=== PATIENT | female | born 1995 | race African-American/Black ===

== ENCOUNTER 2018-10-19 13:28 | Emergency (ER) | payer SELFPAY ==
[~2018-10-19] VITALS: Ht 165.1 cm; Wt 167.3 kg
[2018-10-19 14:06] VITALS: Ht 165.1 cm; Wt 167.3 kg
[2018-10-19 16:12] LABS: APPEARANCE CLEAR (CLEAR); BILIRUBIN NEGATIVE (NEGATIVE); COLOR YELLOW (YELLOW); GLUCOSE NEGATIVE (NEGATIVE); KETONE NEGATIVE (NEGATIVE); NITRITE NEGATIVE (NEGATIVE); PROTEIN NEGATIVE (NEGATIVE); UROBILINOGEN NORMAL (NORMAL)
[2018-10-19] MEDS ORDERED: VOLTAREN75 MG PO (17:20)
[2018-10-19 17:55] VITALS: BP 142/90
== END 2018-10-19 17:50 | disposition home or self-care (01) ==
LOC: D.ER 13:28
PROVIDERS: Emergency Medicine
DX: M79.18 Myalgia, other site (principal)

== ENCOUNTER 2019-04-03 19:50 | Emergency (ER) | payer SELFPAY ==
[~2019-04-03] VITALS: Ht 165.1 cm; Wt 170.5 kg
[~2019-04-03 19:50] MED LIST: VOLTAREN75 MG PO
[2019-04-03 20:01] VITALS: Ht 165.1 cm; Wt 170.5 kg
[2019-04-03 20:23] LABS: BASOPHILS 0.3 % (0-2); EOSINOPHILS 1.3 % (0-7); HEMATOCRIT 40.5 % (36.0-48.0); HEMOGLOBIN 12.8 g/dL (12-16); IMMATURE GRANULOCYTES 0.6 % (0-5); LYMPHOCYTES 37.3 % (15-50); MCH 28.7 pg (26.0-34.0); MCHC 31.6 g/dL (31.0-37.0); MCV 90.8 fL (80.0-100.0); MEAN PLATELET VOLUME 9.5 fL (7.4-10.4); MONOCYTES 7.1 % (2-11); NEUTROPHILS 53.4 % (40-80); PLATELET COUNT 294 10x3/uL (130-400); RBC 4.46 10x6/uL (4.00-5.40); RDW 13.6 % (11.5-14.5); WBC 10.6 10x3/uL (4.8-10.8)
[2019-04-03 20:30] LABS: APPEARANCE CLEAR (CLEAR); BILIRUBIN NEGATIVE (NEGATIVE); COLOR STRAW (YELLOW); GLUCOSE NEGATIVE (NEGATIVE); KETONE NEGATIVE (NEGATIVE); NITRITE NEGATIVE (NEGATIVE); PROTEIN NEGATIVE (NEGATIVE); SPECIFIC GRAVITY 1.005 (1.005-1.020); UROBILINOGEN NORMAL (NORMAL)
[2019-04-03 20:32] LABS: HCG URINE NEGATIVE (NEGATIVE)
--- NOTE | 2019-04-03 20:35 | NUR ---
DR. NG NOTIFIED AND REVIEWED PT'S BEHAVIOR AND ASSESSMENT RESULTS. PT IS A LOW RISK PER DR. NG. DR. NG STATED TO GIVE RESOURCES TO PT AT TIME OF DISCHARGE. NO FURTHER ORDERS AT THIS TIME. RESOURCES REVIEWED WITH PT AND SHE VERBALIZED UNDERSTANDING.
[2019-04-03 20:41] LABS: APTT 32.4 SECONDS (22.8-39.4); INR 0.96 (0.85-1.17); PROTIME 12.3 SECONDS (11.6-15.0)
[2019-04-03 20:47] LABS: CALC OSMOLALITY 280 mosm/kg (275-300); CARBON DIOXIDE 27.1 mmol/L (21.0-32.0); CHLORIDE - SERUM 105 mmol/L (98-107); CREATININE - SERUM 0.8 mg/dL (0.6-1.3); GLUCOSE 120 mg/dL (74-106); SODIUM 141 mmol/L (136-145); UREA NITROGEN 9 mg/dL (7-18); eGFR NON AFRICAN AMERICAN > 90 mL/min (90-120)
[2019-04-03 20:54] LABS: ALBUMIN 3.7 g/dL (3.4-5.0); ALKALINE PHOSPHATASE 161 U/L (46-116); ALT (SGPT) 28 U/L (10-68); CREATINE KINASE 117 UL (21-215); MAGNESIUM - SERUM 2.1 mg/dL (1.8-2.4); PROTEIN - SERUM 8.1 g/dL (6.4-8.2)
[2019-04-03 20:55] LABS: TROPONIN-I < 0.017 ng/mL (0.000-0.060)
[2019-04-03] MEDS ORDERED: ALBUTEROL SULF8.5 GM INH (21:45)
[2019-04-03] MEDS ORDERED: VIBRAMYCIN 100100 MG PO (21:45)
[2019-04-03 21:53] VITALS: BP 153/83
== END 2019-04-03 21:53 | disposition home or self-care (01) ==
LOC: D.ER 19:50
PROVIDERS: Emergency Medicine
DX: J40 Bronchitis, not specified as acute or chronic (principal)

== ENCOUNTER 2019-04-14 15:07 | Emergency (ER) | payer SELFPAY ==
[~2019-04-14] VITALS: Ht 165.1 cm; Wt 139.5 kg
[~2019-04-14 15:07] MED LIST changes: +ALBUTEROL SULF8.5 GM INH; +VIBRAMYCIN 100100 MG PO
[2019-04-14 15:11] VITALS: Ht 165.1 cm; Wt 139.5 kg
[2019-04-14] MEDS ORDERED: IMPLANON (15:15)
[2019-04-14] MEDS ORDERED: INDOCIN25 MG PO (17:40)
[2019-04-14] MEDS ORDERED: VISTARIL25 MG PO (17:40)
[2019-04-14] MEDS ORDERED: MUCINEX DM ER1 EAC1 PO (17:40)
[2019-04-14 18:25] VITALS: BP 138/88
== END 2019-04-14 18:25 | disposition home or self-care (01) ==
LOC: D.ER 15:07
DX: R09.1 Pleurisy (principal); J45.909 Unspecified asthma, uncomplicated

== ENCOUNTER 2019-11-09 02:56 | Emergency (ER) | payer MEDICAID ==
[~2019-11-09] VITALS: Ht 165.1 cm; Wt 140.0 kg
[~2019-11-09 02:56] MED LIST changes: +IMPLANON; +INDOCIN25 MG PO; +MUCINEX DM ER1 EAC1 PO; +VISTARIL25 MG PO
[2019-11-09 03:02] VITALS: Ht 165.1 cm; Wt 140.0 kg
[2019-11-09 03:53] LABS: BASOPHILS 0.1 % (0-2); EOSINOPHILS 1.7 % (0-7); HEMATOCRIT 40.2 % (36.0-48.0); HEMOGLOBIN 12.7 g/dL (12-16); IMMATURE GRANULOCYTES 0.3 % (0-5); LYMPHOCYTES 24.9 % (15-50); MCH 28.5 pg (26.0-34.0); MCHC 31.6 g/dL (31.0-37.0); MCV 90.1 fL (80.0-100.0); MEAN PLATELET VOLUME 9.4 fL (7.4-10.4); MONOCYTES 6.5 % (2-11); NEUTROPHILS 66.5 % (40-80); PLATELET COUNT 289 10x3/uL (130-400); RBC 4.46 10x6/uL (4.00-5.40); WBC 15.9 10x3/uL (4.8-10.8)
[2019-11-09 03:57] LABS: CALC OSMOLALITY 279 mosm/kg (275-300); CALCIUM 9.1 mg/dL (8.5-10.1); CARBON DIOXIDE 27.8 mmol/L (21.0-32.0); CHLORIDE - SERUM 101 mmol/L (98-107); GLUCOSE 141 mg/dL (74-106); POTASSIUM - SERUM 3.7 mmol/L (3.5-5.1); SODIUM 139 mmol/L (136-145); UREA NITROGEN 12 mg/dL (7-18); eGFR NON AFRICAN AMERICAN 73 mL/min (90-120)
[2019-11-09 04:01] LABS: APTT 32.2 SECONDS (22.8-39.4); INR 0.96 (0.85-1.17); PROTIME 12.7 SECONDS (11.6-15.0)
[2019-11-09 04:02] LABS: D-DIMER-QUANTITATIVE 0.93 ug/mLFEU (0.20-0.54)
[2019-11-09 04:03] LABS: HCG SERUM NEGATIVE (NEGATIVE)
[2019-11-09 04:06] LABS: ALBUMIN 3.6 g/dL (3.4-5.0); ALKALINE PHOSPHATASE 144 U/L (30-120); ALT (SGPT) 36 U/L (10-68); BILIRUBIN - TOTAL 0.21 mg/dL (0.2-1.3); PROTEIN - SERUM 7.7 g/dL (6.4-8.2)
[2019-11-09 04:20] LABS: TROPONIN-I < 0.017 ng/mL (0.000-0.060)
[2019-11-09] MEDS ORDERED: PROMETHAZINE W473 ML PO (06:24)
[2019-11-09] MEDS ORDERED: AUGMENTIN 875-11 TAB PO (06:24)
[2019-11-09 07:00] VITALS: BP 146/77
== END 2019-11-09 07:05 | disposition home or self-care (01) ==
LOC: D.ER 02:56
PROVIDERS: Family Medicine
DX: J18.9 Pneumonia, unspecified organism (principal); R05 Cough; R07.9 Chest pain, unspecified; R06.02 Shortness of breath; J45.909 Unspecified asthma, uncomplicated; Z72.0 Tobacco use; R51 Headache

== ENCOUNTER 2020-03-28 19:32 | Emergency (ER) | payer MEDICAID ==
[~2020-03-28] VITALS: Ht 165.1 cm; Wt 142.7 kg
[~2020-03-28 19:32] MED LIST changes: +AUGMENTIN 875-11 TAB PO; +PROMETHAZINE W473 ML PO
[2020-03-28 19:36] VITALS: Ht 165.1 cm; Wt 142.7 kg
[2020-03-28 20:24] LABS: BASOPHILS 0.2 % (0-2); EOSINOPHILS 1.6 % (0-7); HEMOGLOBIN 12.5 g/dL (12-16); IMMATURE GRANULOCYTES 0.4 % (0-5); LYMPHOCYTES 32.4 % (15-50); MCH 27.7 pg (26.0-34.0); MCHC 31.3 g/dL (31.0-37.0); MCV 88.5 fL (80.0-100.0); MEAN PLATELET VOLUME 9.7 fL (7.4-10.4); MONOCYTES 8.6 % (2-11); NEUTROPHILS 56.8 % (40-80); PLATELET COUNT 280 10x3/uL (130-400); RBC 4.52 10x6/uL (4.00-5.40); RDW 14.2 % (11.5-14.5); WBC 12.7 10x3/uL (4.8-10.8)
[2020-03-28 20:27] LABS: INR 0.97 (0.85-1.17); PROTIME 12.9 SECONDS (11.6-15.0)
[2020-03-28 20:29] LABS: D-DIMER-QUANTITATIVE 0.39 ug/mLFEU (0.20-0.54)
[2020-03-28 20:30] LABS: BILIRUBIN NEGATIVE (NEGATIVE); KETONE NEGATIVE (NEGATIVE); NITRITE NEGATIVE (NEGATIVE); UROBILINOGEN NORMAL mg/dL (< 2)
[2020-03-28 20:32] LABS: CALC OSMOLALITY 278 mosm/kg (275-300); CALCIUM 9.1 mg/dL (8.5-10.1); CARBON DIOXIDE 27.7 mmol/L (21.0-32.0); CHLORIDE - SERUM 104 mmol/L (98-107); CREATININE - SERUM 0.9 mg/dL (0.6-1.3); POTASSIUM - SERUM 3.7 mmol/L (3.5-5.1); SODIUM 141 mmol/L (136-145); UREA NITROGEN 9 mg/dL (7-18); eGFR NON AFRICAN AMERICAN 83 mL/min (90-120)
[2020-03-28 20:38] LABS: ALBUMIN 3.6 g/dL (3.4-5.0); ALKALINE PHOSPHATASE 118 U/L (30-120); ALT (SGPT) 53 U/L (10-68); BILIRUBIN - TOTAL 0.24 mg/dL (0.2-1.3); PROTEIN - SERUM 7.7 g/dL (6.4-8.2)
[2020-03-28 20:41] LABS: GLUCOSE 89 mg/dL (74-106)
[2020-03-28] MEDS ORDERED: LASIX20 MG PO (21:13)
[2020-03-28 21:27] VITALS: BP 148/83
== END 2020-03-28 21:27 | disposition home or self-care (01) ==
LOC: D.ER 19:32
PROVIDERS: Family Medicine
DX: M79.661 Pain in right lower leg (principal); M79.662 Pain in left lower leg; R60.9 Edema, unspecified

== ENCOUNTER → 2020-11-10 10:18 | Outpatient (CLI) | payer MEDICAID ==
[2020-07-21 01:30] VITALS: BMI 53.3
[~2020-11-10 10:18] MED LIST changes: +LASIX20 MG PO
== END | disposition home or self-care (01) ==
LOC: D.US 09:30
PROVIDERS: ATTEND Obstetrics & Gynecology Maternal & Fetal Medicine
DX: N91.2 Amenorrhea, unspecified (principal); Z80.8 Family history of malignant neoplasm of other organs or systems

== ENCOUNTER 2020-11-22 22:37 | Emergency (ER) | payer BC ==
[~2020-11-22] VITALS: Ht 165.1 cm; Wt 167.8 kg
[2020-11-22 22:40] VITALS: Ht 165.1 cm; Wt 167.8 kg
[2020-11-22 23:23] LABS: BASOPHILS 0.3 % (0-2); EOSINOPHILS 1.8 % (0-7); HEMOGLOBIN 12.7 g/dL (12-16); LYMPHOCYTES 17.5 % (15-50); MCH 27.8 pg (26.0-34.0); MCHC 32.4 g/dL (31.0-37.0); MCV 85.6 fL (80.0-100.0); MONOCYTES 6.2 % (2-11); NEUTROPHILS 74.2 % (40-80); PLATELET COUNT 283 10x3/uL (130-400); RBC 4.56 10x6/uL (4.00-5.40); RDW 14.5 % (11.5-14.5); WBC 11.1 10x3/uL (4.8-10.8)
[2020-11-22 23:26] LABS: BILIRUBIN NEGATIVE (NEGATIVE); KETONE NEGATIVE mg/dL (< 1+); NITRITE NEGATIVE (NEGATIVE); UROBILINOGEN NORMAL mg/dL (< 2)
[2020-11-22 23:34] LABS: CALC OSMOLALITY 278 mosm/kg (275-300); CALCIUM 9.3 mg/dL (8.5-10.1); CARBON DIOXIDE 26.8 mmol/L (21.0-32.0); CHLORIDE - SERUM 99 mmol/L (98-107); CREATININE - SERUM 0.9 mg/dL (0.6-1.3); POTASSIUM - SERUM 3.6 mmol/L (3.5-5.1); RETIC 2.02 % (0.45-2.28); SODIUM 138 mmol/L (136-145); UREA NITROGEN 10 mg/dL (7-18); eGFR NON AFRICAN AMERICAN 82 mL/min (90-120)
[2020-11-22 23:36] LABS: GLUCOSE 171 mg/dL (74-106)
[2020-11-22 23:40] LABS: ALBUMIN 3.6 g/dL (3.4-5.0); ALKALINE PHOSPHATASE 137 U/L (30-120); ALT (SGPT) 58 U/L (10-68); BILIRUBIN - TOTAL 0.23 mg/dL (0.2-1.3); PROTEIN - SERUM 7.5 g/dL (6.4-8.2)
[2020-11-23 02:33] VITALS: BP 139/89
== END 2020-11-23 02:33 | disposition home or self-care (01) ==
LOC: D.ER 22:37
PROVIDERS: Family Medicine
DX: R07.9 Chest pain, unspecified (principal); D57.1 Sickle-cell disease without crisis; J45.909 Unspecified asthma, uncomplicated